=== PATIENT | male | born 1980 | race Two or more races ===

== ENCOUNTER 2020-09-16 15:27 | Outpatient (CLI) | payer OTHER | END 2020-09-16 15:40 | disposition home or self-care (01) | LOC: RAD 15:27 | PROVIDERS: ATTEND Orthopaedic Surgery | DX: M25.532 Pain in left wrist (principal) ==

== ENCOUNTER 2020-09-24 10:49 | Outpatient (CLI) | payer OTHER | END 2020-09-24 10:50 | disposition home or self-care (01) | LOC: RAD 10:49 | PROVIDERS: ATTEND Orthopaedic Surgery | DX: M25.532 Pain in left wrist (principal) ==